=== PATIENT | female | born 1995 | race Caucasian/White ===

== ENCOUNTER 2016-12-06 13:25 | Emergency (ER) | payer MEDICAID ==
[2016-12-06 13:41] VITALS: BP 107/75
--- NOTE | 2016-12-06 13:59 | ED Physician Chart ---
Chief Complaint/HPI - Patient Information Date Seen:: 12/06/16 Time Seen:: 13:50 Chief Complaint:: meds refill History of Present Illness:: pt here for meds refill...has DM type 1 x 10 yrs and has run out of humalog and lantus and syringes. says she is between jobs and transient btwn here and [place]. she checks her glucose daily and it has been stable (132 today) and she is refusing blood check now. feels fine. no recent ilness. no dizzy nor ECHEVARRIA nor weak today. no cp. no sob. she is in process of changing drs and needs med refill bc of this. denies drug use. or narc hx sometimes uses naproxyn for migraines (no ECHEVARRIA lately) Allergies:: Allergies Allergy/AdvReac Type Severity Reaction Status Date / Time morphine AdvReac Verified 12/06/16 13:37 Vitals:: Vital Signs - 8 hr 12/06/16 13:41 BP 107/75 Historian:: Patient Review of Systems - Review of Systems General/Constitutional: No fever, No chills, No weight loss, No weakness, No diaphoresis, No edema, No loss of appetite Skin: No skin lesions, No rash, No bruising Head: No headache, No light-headedness Eyes: No loss of vision, No pain, No diplopia ENT: No earache, No nasal drainage, No sore throat, No tinnitus Neck: No neck pain, No swelling, No thyromegaly, No stiffness, No mass noted Cardio Vascular: No chest pain, No palpitations, No PND, No orthopnea, No edema Pulmonary: No SOB, No cough, No sputum, No wheezing GI: No nausea, No vomiting, No diarrhea, No pain, No melena, No hematochezia, No constipation, No hematemesis G/U: No dysuria, No frequency, No hematuria Musculoskeletal: No bone or joint pain, No back pain, No muscle pain Endocrine: No polyuria, No polydipsia Psychiatric: No prior psych history, No depression, No anxiety, No suicidal ideation Hematopoietic: No bruising, No lymphadenopathy Allergic/Immuno: No urticaria, No angioedema Neurological: No syncope, No focal symptoms, No weakness, No paresthesia, No headache, No seizure, No dizziness, No confusion, No vertigo Past Medical History - Past Medical History Past Medical History: DM Social History: Non Smoker, No Alcohol, No Drug Use Medication: Reviewed Family Medical History - Family Member Mother Ethnicity: Non- Living Status: Still Living Physical Exam - Physical Examination General/Constitutional: Awake, Well-developed, well-nourished, Alert, No distress, GCS 15, Non-toxic appearing, Ambulatory Head: Atraumatic Eyes: Lids, conjuctiva normal, PERRL, EOMI Skin: Nl inspection, No rash, No skin lesions, No ecchymosis, Well hydrated, No lymphadenopathy ENMT: External ears, nose nl, Nasal exam nl, Lips, teeth, gums nl Neck: Nontender, Full ROM w/o pain, No JVD, No nuchal rigidity, No bruit, No mass, No stridor Respiratory: Nl effort/Exclusion, Clear to Auscultation, No Wheeze/Rhonchi/Rales Cardio Vascular: RRR, No murmur, gallop, rubs, NL S1 S2 GI: No tenderness/rebounding/guarding, No organomegaly, No hernia, Normal BS's, Nondistended, No mass/bruits, No McBurney tenderness : No CVA tenderness Extremities: No tenderness or effusion, Full ROM, normal strength in all extremities, No edema, Normal digits & nails Neuro/Psych: Alert/oriented, DTR's symmetric, Normal sensory exam, Normal motor strength, Judgement/insight normal, Mood normal, Normal gait, No focal deficits Misc: normal gait, Normal back, No paraspinal tenderness ED Septic Shock - . Is Septic Shock (SBP<90, OR Lactate>4 mmol\L) present?: No - <6hrs of presentation: Vital Signs: Vital Signs - 8 hr 12/06/16 13:41 BP 107/75 Reassessment (Disposition) - Reassessment Reassessment Condition:: Unchanged - Diagnosis Diagnosis:: 1 type 1 DM 2 med refill - Aftercare/Follow up Instructions Aftercare/Follow-Up Instructions:: Counseled pt & family regarding lab results/ diagnosis & need follow up Medication Prescribed:: rx for 1x10 mls vials of humalog and lantus insulin and 1 box needle/syringes pt to see pmd for further meds rxs - Patient Disposition Discharge/Transfer:: Home Condition at Disposition:: Unchanged
== END 2016-12-06 13:55 | disposition home or self-care (01) ==
LOC: ER 13:25
DX: E10.69 Type 1 diabetes mellitus with other specified complication (principal); Z79.4 Long term (current) use of insulin; Z76.0 Encounter for issue of repeat prescription; Z88.6 Allergy status to analgesic agent
CPT/HCPCS: Z7502